=== PATIENT | female | born 1940 | race Caucasian/White ===

== ENCOUNTER 2016-10-16 19:22 | Emergency (ER) | payer OTHER ==
[2016-10-16 20:11] VITALS: TEMP 97.1
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
[2016-10-16 21:36] VITALS: PULSE 60
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
--- NOTE | 2016-10-16 21:58 | XR ---
Lumbar spine HISTORY: Trauma and pain 5 views of the lumbosacral spine There is a levoscoliosis centered at L1. There is no spondylolysis. Anterolisthesis grade 1 L4-5, L5- S1. Lumbar vertebral bodies show preserved height. Bone mineralization is reduced. Loss of disc heigh t present at the intervertebral levels. Sclerosis present in the posterior elements. Atherosclerotic vascular calcifications noted incidentally. IMPRESSION: Osteopenia, degenerative disc disease, facet arthropathy. Scoliosis.
[2016-10-16 22:19] VITALS: BP 123/59; RESP 16
== END 2016-10-16 22:19 | disposition home or self-care (01) ==
LOC: EC 19:22
DX: S16.1XXA Strain of muscle, fascia and tendon at neck level, initial encounter (principal); S39.012A Strain of muscle, fascia and tendon of lower back, initial encounter; M51.36 Other intervertebral disc degeneration, lumbar region; M50.30 Other cervical disc degeneration, unspecified cervical region; M43.17 Spondylolisthesis, lumbosacral region; M46.96 Unspecified inflammatory spondylopathy, lumbar region; M85.88 Other specified disorders of bone density and structure, other site; M41.86 Other forms of scoliosis, lumbar region; E07.9 Disorder of thyroid, unspecified; Z79.899 Other long term (current) drug therapy; Z91.011 Allergy to milk products; Z91.018 Allergy to other foods; Z87.828 Personal history of other (healed) physical injury and trauma; V43.62XA Car passenger injured in collision with other type car in traffic accident, initial encounter; Y92.410 Unspecified street and highway as the place of occurrence of the external cause
CPT/HCPCS: 72110; 72125; 99284

== ENCOUNTER → 2018-06-25 | Outpatient (CLI) | payer MEDICARE | END | disposition home or self-care (01) | LOC: LABWHC1 13:09 | PROVIDERS: ATTEND Family Medicine | DX: Z13.79 Encounter for other screening for genetic and chromosomal anomalies (principal); Z82.79 Family history of other congenital malformations, deformations and chromosomal abnormalities | CPT/HCPCS: 36415 ==

== ENCOUNTER → 2020-07-18 | Outpatient (CLI) | payer MEDICARE ==
--- NOTE | 2020-07-18 08:49 | CT ---
EXAMINATION TYPE: CT wrist RT wo con DATE OF EXAM: 07/18/2020 COMPARISON: None. HISTORY: Pain in right lateral wrist from fall. BB was placed on ulnar side. Rule out scaphoid fractu re per order. CT DLP: 123.7 mGycm Automated exposure control for dose reduction was used. FINDINGS: Metallic BB placed along the ulnar volar surface distal diaphyseal level of the forearm. Osseous stru ctures are demineralized. Distal radius and ulna are intact. Minus ulnar variance is seen. There is scapholunate joint space narrowing. No abnormal scapholunate joint space widening is noted. As suspected clinically there is irregular 3 mm linear lucency consistent with acute nondisplaced int ra-articular fracture in the distal scaphoid best appreciated coronal image 21 extending to reticulat ion with the trapezium bone. There is radial extension distal scaphoid with slight cortical step off appreciated on coronal image 19. This makes length of fracture greater than 3 mm likely closer to 10 mm. Moderate narrowing at the scaphoid trapezium articulation is present. There is moderate to severe degenerative change with narrowing and spurring at base of first metacarp al. There is additional mild to moderate narrowing and spurring at the triscaphe joint. Lunate capitate relationship is preserved. Scaphoid angle is maintained. Proximal and distal carpal r ows are maintained. Moderate narrowing of base of second metacarpal also identified. IMPRESSION: There is acute minimally displaced intra-articular fracture distal scaphoid as detailed a sam.
== END | disposition home or self-care (01) ==
LOC: RADCTMAIN 07:21
PROVIDERS: ATTEND Orthopaedic Surgery Hand Surgery
DX: Z03.89 Encounter for observation for other suspected diseases and conditions ruled out (principal); S62.011A Displaced fracture of distal pole of navicular [scaphoid] bone of right wrist, initial encounter for closed fracture

== ENCOUNTER → 2020-08-27 | Outpatient (CLI) | payer MEDICARE ==
--- NOTE | 2020-08-27 09:13 | MR ---
EXAMINATION TYPE: MR knee RT wo con DATE OF EXAM: 08/27/2020 COMPARISON: None. HISTORY: Right knee pain and swelling, recent fall injury. TECHNIQUE: Multiplanar, multisequence imaging of the right knee is performed without IV contrast. FINDINGS: MEDIAL MENISCUS: Medial extrusion of medial meniscus on coronal images Abnormal signal through the ce ntral body extends to involve the posterior horn where there is fraying of articular surface. LATERAL MENISCUS: Anterior and posterior horns are intact without tear. CRUCIATE LIGAMENTS: The anterior and posterior cruciate ligaments are intact and unremarkable. COLLATERAL LIGAMENTS: The medial collateral ligament and lateral collateral ligament complex are inta ct and unremarkable. EXTENSOR MECHANISM: Visualized quadriceps and patellar tendons are intact. EFFUSION: Small suprapatellar joint effusion. POPLITEAL CYST: No popliteal/mckeon cyst. TRICOMPARTMENT SPACES: [id number] tricompartment joint space loss and spurring. CARTILAGE: Chondromalacia patella with thinning of articular cartilage along the posterior patellar s urface. Focal cartilaginous loss medial aspect medial tibial femoral compartment. BONE MARROW SIGNAL: Heterogeneous increased T2 signal involving the inferior medial portion of patell a over roughly 2.4 x 1.6 cm portion coronal image 4. OTHER: No additional significant abnormality is appreciated. IMPRESSION: 1. Full-thickness tear medial meniscus involving posterior horn and central body. 2. Zhld-ja-yacaagiv degenerative changes as detailed above. 3. Small suprapatellar joint effusion. 4. Small area of osseous contusion injury involving medial inferior portion of patella.
== END | disposition home or self-care (01) ==
LOC: RADMRIMAIN 08:17
PROVIDERS: ATTEND Orthopaedic Surgery
DX: S83.241A Other tear of medial meniscus, current injury, right knee, initial encounter (principal); M17.11 Unilateral primary osteoarthritis, right knee; S80.01XA Contusion of right knee, initial encounter

== ENCOUNTER 2021-10-03 18:53 | Emergency (ER) | payer MEDICARE ==
[2021-10-03 19:48] VITALS: BP 134/67; PULSE 67; RESP 20; TEMP 98.4
--- NOTE | 2021-10-03 19:53 | ED ---
General Adult HPI - General Chief complaint: Dizziness Stated complaint: COVID+/Antibodies Time Seen by Provider: 10/03/21 19:24 Source: patient, family, RN notes reviewed, old records reviewed Mode of arrival: ambulatory Limitations: no limitations - History of Present Illness Initial comments: 81-year-old female presenting with cough, congestion, fever. Patient did test positive for coronavirus yesterday. She had been previously vaccinated. No associated dyspnea or chest pain. She feels somewhat lightheaded. No chest pain or abdominal pain. Patient requesting monoclonal antibodies. - Related Data Home Medications Medication Instructions Recorded Confirmed Thyroid,Pork [[place] Thyroid] 90 mg PO DAILY 10/16/16 10/16/16 Previous Rx's Medication Instructions Recorded Hydrocodone/Acetaminophen [[place] 1 each PO Q6HR PRN #10 tab 10/16/16 5-325] Ibuprofen [Motrin] 600 mg PO Q6HR PRN #20 tab 10/16/16 diazePAM [Valium] 5 mg PO BID #6 tab 10/16/16 Allergies Allergy/AdvReac Type Severity Reaction Status Date / Time Milk Containing Products Allergy Nausea & Verified 10/03/21 19:48 [Dairy] Vomiting GRAINS Allergy Nausea & Uncoded 10/03/21 19:48 Vomiting Review of Systems ROS Statement: Those systems with pertinent positive or pertinent negative responses have been documented in the HPI. ROS Other: All systems not noted in ROS Statement are negative. Past Medical History Past Medical History: Thyroid Disorder History of Any Multi-Drug Resistant Organisms: None Reported Additional Past Surgical History / Comment(s): cataracts Past Psychological History: No Psychological Hx Reported Smoking Status: Never smoker Past Alcohol Use History: None Reported Past Drug Use History: None Reported General Exam Limitations: no limitations General appearance: alert, in no apparent distress Head exam: Present: atraumatic, normocephalic Eye exam: Present: normal appearance, PERRL Neck exam: Present: normal inspection. Absent: tenderness, meningismus Respiratory exam: Present: normal lung sounds bilaterally. Absent: respiratory distress, wheezes Cardiovascular Exam: Present: regular rate, normal rhythm GI/Abdominal exam: Present: soft. Absent: distended, tenderness, guarding, rebound Extremities exam: Present: normal inspection, normal capillary refill Neurological exam: Present: alert, oriented X3, CN II-XII intact. Absent: motor sensory deficit Psychiatric exam: Present: normal affect, normal mood Skin exam: Present: warm, dry, intact. Absent: cyanosis, diaphoretic Course Vital Signs 10/03/21 19:44 Temperature 98.4 F Pulse Rate 67 Respiratory 20 Rate Blood Pressure 134/67 O2 Sat by Pulse 98 Oximetry Medical Decision Making - Medical Decision Making 81-year-old female with coronavirus, requesting antibodies. She does meet for monoclonal antibodies. These will be transfused in the emergency department. The patient is instructed to stay hydrated, treat fever with Tylenol, take zinc, vitamin D and vitamin C. She should follow with her primary care physician. Disposition Clinical Impression: COVID-19 Disposition: HOME SELF-CARE Condition: Fair Instructions (If sedation given, give patient instructions): COVID-19 (Coronavirus Disease 2019) (ED) Is patient prescribed a controlled substance at d/c from ED?: No Referrals: Adam Marcum DO [Primary Care Provider] - 1-2 days Time of Disposition: 21:00
[2021-10-03] MEDS ORDERED: SODIUM CHLORIDE 0.9% 500 ML 500 ML IV ONE (21:25)
[2021-10-03] MEDS ORDERED: BEBTELOVIMAB (EUA) 175 MG/2 ML VIAL IV ONE (21:30)
== END 2021-10-03 23:01 | disposition home or self-care (01) ==
LOC: EC 18:53
DX: U07.1 COVID-19 (principal); E07.9 Disorder of thyroid, unspecified; Z91.011 Allergy to milk products; J30.1 Allergic rhinitis due to pollen
CPT/HCPCS: 99283; M0222; Q0222; 96360

== ENCOUNTER 2021-11-19 19:16 | Emergency (ER) | payer MEDICARE ==
--- NOTE | 2021-11-19 20:43 | XR ---
EXAMINATION TYPE: XR humerus RT DATE OF EXAM: 11/19/2021 COMPARISON: NONE HISTORY: Pain TECHNIQUE: 3 views FINDINGS: There is comminuted fracture of the humeral neck which also a 3 x 1 cm large chip fracture of the greater tuberosity of the humerus. The elbow joint appears intact. Scapula is intact. IMPRESSION: Acute comminuted humeral neck fracture without significant displacement.
[2021-11-19] MEDS ORDERED: ACETAMINOPHEN TAB 500 MG TAB PO STA (21:32)
[2021-11-19] MEDS ORDERED: ACET/COD 300 MG/30 MG STARTER PACK 6 TAB BTL PO STA (21:35)
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
[2021-11-19 22:58] VITALS: BP 126/68; PULSE 62; RESP 18; TEMP 98.2
== END 2021-11-19 22:55 | disposition home or self-care (01) ==
LOC: EC 19:16
DX: S42.294A Other nondisplaced fracture of upper end of right humerus, initial encounter for closed fracture (principal); E07.9 Disorder of thyroid, unspecified; Z91.011 Allergy to milk products; Z79.899 Other long term (current) drug therapy; Z91.018 Allergy to other foods; Z79.890 Hormone replacement therapy; W18.39XA Other fall on same level, initial encounter
CPT/HCPCS: 99284